=== PATIENT | male | born 1960 | race Caucasian/White ===

== ENCOUNTER 2022-10-24 12:54 | Outpatient (REF) | payer MEDICARE, MEDICAID, SELFPAY ==
--- NOTE | 2022-10-24 12:15 | SKI_PTH ---
PATIENT: Ivan Pisano LOC: [facility] U#:[id number] AGE/SX: 62/M ROOM: RE10/24/[address]: Spenser Lucia MD : 1960 BED: DIS: 10/24/2022 SPEC #: [id number] RECD: 10/24/22 17:09 STATUS: ISABELLE RELeonora #: [id number] IGNACIO: 10/24/22 12:[address]: Spenser Lucia DEPT: Surgical Specimen RECD BY: Bianka Salmon ENTERED: 10/24/22 17:10 SP TYPE: RADHA CORONA DR: Kierra Kang Tissues: 1 - SKIN BIOPSY(SHAVE/PUNCH) 2 - SKIN BIOPSY(SHAVE/PUNCH) Procedures: SKIN LEVEL 4 Comments: [id number]
== END 2022-10-24 12:55 | disposition home or self-care (01) ==
LOC: LBN 12:54
PROVIDERS: PCP Nurse Practitioner Family; Visit Provider Otolaryngology
DX: L82.1 Other seborrheic keratosis (principal); L85.8 Other specified epidermal thickening; L28.1 Prurigo nodularis
CPT/HCPCS: 88305